=== PATIENT | female | born 1990 | race Caucasian/White ===

== ENCOUNTER 2018-02-18 08:37 | Day surgery (SDC) | payer BC ==
[2018-02-18] MEDS ORDERED: Acetaminophen 325 MG TAB PO SCH (09:15)
[2018-02-18 17:50] VITALS: BP 136/63; TEMP 98.7
[2018-02-18 18:14] LABS: #Lymphocytes 1.3 thou/uL (1.20-3.40); #Monocytes 0.4 thou/uL (0.11-0.59); #Neutrophils 6.7 thou/uL (1.40-6.50); %Basophils 0.1 % (0.0-1.0); %Eosinophils 0.2 % (0.0-10.0); %Lymphocytes 15.9 % (21.0-51.0); %Monocytes 4.6 % (0.0-10.0); %Neutrophils 79.1 % (42.0-75.0); Hemoglobin 9.1 g/dL (12.0-16.0); Mean Corpuscular HGB CONC 33.2 g/dL (32.0-36.0); Mean Corpuscular Hemoglobin 27.4 pg (27.0-31.0); Mean Corpuscular Volume 82.7 fL (78.0-98.0); Mean Platelet Volume 7.5 fL (7.4-10.4); Platelet Count 461 thou/uL (130-400); RBC Distribution Width 15.8 % (11.5-14.5); Red Blood Cell (RBC) Count 3.33 mill/uL (4.20-5.40); White Blood Cell (WBC) Count 8.4 thou/uL (4.8-10.8)
== END 2018-02-18 18:14 | disposition home or self-care (01) ==
LOC: ONC/OP 08:37 → ONC 08:43 → ONC/OP 18:14
PROVIDERS: ATTEND Physician Assistant Medical
DX: D50.9 Iron deficiency anemia, unspecified (principal); K50.90 Crohn's disease, unspecified, without complications; K92.2 Gastrointestinal hemorrhage, unspecified; Z88.0 Allergy status to penicillin
CPT/HCPCS: 36415; 36430; 85025; 86850; 86900; 86901; P9016